=== PATIENT | male | born 1965 | race Caucasian/White ===

== ENCOUNTER 2017-09-24 11:22 | Emergency (ER) | payer BC, OTHER ==
[~2017-09-24] VITALS: Ht 172.7 cm; Wt 76.2 kg
[2017-09-24 16:25] VITALS: BP 115/78
== END 2017-09-24 17:37 | disposition home or self-care (01) ==
LOC: ER 11:22
DX: S80.02XA Contusion of left knee, initial encounter (principal); S60.222A Contusion of left hand, initial encounter; S69.92XA Unspecified injury of left wrist, hand and finger(s), initial encounter; E78.5 Hyperlipidemia, unspecified
CPT/HCPCS: 73110; 73130; 73562